=== PATIENT | female | born 1960 | race Caucasian/White ===

== ENCOUNTER 2020-07-17 13:38 | Outpatient (CLI) | payer BC, SELFPAY ==
--- NOTE | ~2020-07-17 | US_ITS ---
EXAMINATION: US pelvic complete w TV DATE: 07/17/2020 14:25 INDICATION: Pelvic pain Comparison:No prior studies for comparison. TECHNIQUE: Multiple transabdominal and endovaginal sonographic images of the pelvis performed. FINDINGS: The uterus is surgically absent. The ovaries are not visualized. There is no free fluid in the pelvis. There are no abnormal masses s een on either side. IMPRESSION: 1. Unremarkable pelvic ultrasound post hysterectomy. Reviewed, dictated and finalized at location B.
== END 2020-07-17 13:39 | disposition home or self-care (01) ==
PROVIDERS: PCP Physician Assistant; Visit Provider Obstetrics & Gynecology
DX: R10.2 Pelvic and perineal pain (principal)
CPT/HCPCS: 76830; 76856

== ENCOUNTER 2021-03-02 15:29 | Outpatient (CLI) | payer BC, SELFPAY ==
--- NOTE | ~2021-03-02 | XR_ITS ---
EXAMINATION: XR wrist RT min 3V DATE: 03/02/2021 15:51 INDICATION: Right wrist pain. TECHNIQUE: 4 views of right wrist were obtained. COMPARISON: None. FINDINGS: Bone alignment is normal. No fracture. There is mild osteoarthritis of triscaphe joint and first carpometacarpal joint. IMPRESSION: 1. Mild polyarticular osteoarthritis. Reviewed, dictated and finalized at location A. CAL CARE MANAGER
== END 2021-03-02 15:30 | disposition home or self-care (01) ==
PROVIDERS: PCP Family Medicine; Visit Provider Family Medicine
DX: M19.031 Primary osteoarthritis, right wrist (principal)
CPT/HCPCS: 73110

== ENCOUNTER 2021-03-20 10:47 | Outpatient (CLI) | payer BC, SELFPAY ==
--- NOTE | ~2021-03-20 | XR_ITS ---
EXAMINATION: XR wrist LT min 3V DATE: 03/20/2021 11:05 INDICATION: Left wrist pain. TECHNIQUE: 4 views of left wrist were obtained. COMPARISON: None. FINDINGS: Bone alignment is normal. No fracture. There is mild osteoarthritis of first carpometacarpa l joint. IMPRESSION: 1. Mild osteoarthritis of first carpometacarpal joint. Reviewed, dictated and finalized at location A. PAINTER
== END 2021-03-20 10:48 | disposition home or self-care (01) ==
LOC: ANHIMG 10:49
PROVIDERS: PCP Family Medicine; Visit Provider Physician Assistant
DX: M19.032 Primary osteoarthritis, left wrist (principal)
CPT/HCPCS: 73110

== ENCOUNTER → 2022-02-19 10:07 | Outpatient (CLI) | payer BC, SELFPAY ==
--- NOTE | ~2022-02-19 | XR_ITS ---
EXAMINATION: XR foot RT min 3V DATE: 02/19/2022 10:31 INDICATION: Right foot injury with lateral pain and swelling TECHNIQUE: Dorsoplantar, two oblique and lateral views of the right foot were obtained. COMPARISON: None. FINDINGS: Diffuse osteopenia. Postoperative change at the right first ray with likely realignment osteotomy at the neck of the first metatarsal with screw fixation, bunionectomy at the medial head of the first me tatarsal and realignment osteotomy at the first proximal phalanx with screw fixation. Alignment appea rs essentially anatomic. No fractures identified. Severe osteoarthritis at the first metatarsophalang eal joint. Additional mild osteoarthritis at a few of the tarsal metatarsal and interphalangeal joint s. Small Achilles and plantar calcaneal spurs. Soft tissues are unremarkable. IMPRESSION: 1. No acute osseous abnormality. 2. Postoperative changes consistent with prior bunionectomy and likely right hallux valgus correction . 3. Severe osteoarthritis at the first metatarsophalangeal joint. Reviewed, dictated and finalized at location B. IMPRESSION: 1. No acute osseous abnormality. 2. Postoperative changes consistent with prior bunionectomy and likely right miller llux valgus correction. 3. Severe osteoarthritis at the first metatarsophalangeal joint.
--- NOTE | ~2022-02-19 | XR_ITS ---
EXAMINATION: XR clavicle BI, XR shoulder RT min 2V DATE: 02/19/2022 10:31 INDICATION: Right shoulder pain and specified disorders of bone at the shoulder. TECHNIQUE: 1. AP internally and externally rotated, AP oblique externally rotated and axillary views of the righ t shoulder were obtained. 2. AP and 10 degrees cephalad angled AP views of the bilateral clavicles were obtained. COMPARISON: None FINDINGS: Right shoulder: Normal alignment. No fracture. Glenohumeral and acromioclavicular joint spaces are normal. Small bon e island at the apex of the right humeral head. Soft tissues are unremarkable. Bilateral clavicles: There is some asymmetry at the bilateral sternoclavicular joints with the medial head of the right cl avicle positioned slightly more cephalad with respect to the manubrium and on the left. No fractures. Normal alignment and both glenohumeral and acromioclavicular joint space at the left shoulder. Small amorphous calcification projecting along the cephalad margin of the left glenoid which could represe nt either degenerative loose body, heterotopic ossicle or potentially positive calcific tendinitis. S oft tissues are unremarkable. Visualized portions of the upper lungs are clear. IMPRESSION: Asymmetry to the bilateral sternoclavicular joints which suggests possibility of subluxation at the r ight sternoclavicular joint. Otherwise unremarkable right shoulder and bilateral clavicle radiographs . Reviewed, dictated and finalized at location B. IMPRESSION: Asymmetry to the bilateral sternoclavicular joints which suggests possibility o f subluxation at the right sternoclavicular joint. Otherwise unremarkable right shoulder and bilateral clavicle radiographs.
== END ==
PROVIDERS: PCP Family Medicine; Visit Provider Physician Assistant
DX: M25.519 Pain in unspecified shoulder (principal); M89.8X1 Other specified disorders of bone, shoulder; M19.071 Primary osteoarthritis, right ankle and foot
CPT/HCPCS: 73000; 73030; 73630

== ENCOUNTER 2022-05-17 09:17 | Outpatient (CLI) | payer BC, SELFPAY ==
[2022-05-17 10:17] LABS: Iron 104 ug/dL (37-170)
[2022-05-17 10:26] LABS: Percent Iron Saturation 28 % (20-50)
== END 2022-05-17 09:18 | disposition home or self-care (01) ==
PROVIDERS: PCP Family Medicine; Visit Provider Nurse Practitioner Family
DX: E03.9 Hypothyroidism, unspecified (principal); R53.83 Other fatigue; G25.81 Restless legs syndrome
CPT/HCPCS: 36415; 82728; 83540; 83550; 84443

== ENCOUNTER 2022-06-21 09:15 | Outpatient (CLI) | payer OTHER, SELFPAY ==
--- NOTE | 2022-07-12 19:15 | WPDSLEEPSTUD ---
Sleep Study Date of Study: 06/21/22 Ordering Provider: Nicholas Clay APRN Interpreting Physician: Zenaida Glass DO Sleep Study Type: Polysomnogram Height: 1.75 m Weight: 90.718 kg Body Mass Index: 29.5 Neck Circumference (inches): 16 Duncan: 9 Reason for Sleep Study Difficulty falling asleep and staying asleep Sleep History The patient is a 62-year-old female with depression, hypothyroidism, hyperlipidemia and insomnia that had a sleep study ordered by the pulmonary group for evaluation of her insomnia. The patient denies awakening from sleep short of breath. She denies awakening at night with heartburn, belching or cough. She occasionally snores loudly enough that others complain. She rarely has trouble sleeping when she has a cold. She denies waking up gasping for air throughout the night. She denies having breathing problems at night observed by herself or others. She denies sweating excessively at night. She denies having heart palpitations or irregular heartbeats during the night. She occasionally falls asleep during the day but never while driving. She denies sleep paralysis and cataplexy. She denies having trouble at school or work due to sleepiness. She rarely experiences vivid dreamlike scenes upon awakening or falling asleep. She denies feeling afraid of going to sleep. She rarely has nightmares. She frequently remembers her dreams. She constantly has thoughts racing through her mind. She rarely feels sad or depressed. She frequently has anxiety. She rarely has muscular tension. She denies noticing parts of her body jerk. She denies kicking during the night. She frequently has crawling and aching feelings in her legs but denies having leg pain during the night. She denies grinding her teeth during sleep and denies awakening with morning jaw pain. She is rarely bothered by pain during the day but never awakened by pain during the night. She frequently wakes up feeling stiff in the morning. She frequently wakes up with sore or achy muscles. She frequently wakes up with pain in the neck, spine or other joints. She goes to bed at 11:00 p.m. on weekdays but does not have a set bedtime on the weekends. It takes her over an hour to fall asleep. She will wake up once throughout the night for unknown reasons. When she awakens, she will go eat. She can usually fall back asleep within 10 minutes. She wakes up at 7:00 a.m. on both weekdays and weekends but will usually fall back asleep. She will stay in bed for 15 minutes after waking up in the morning. She will consume caffeinated beverages within 2 hours of bedtime. She does not engage in physical exercise before bedtime. She will watch television before falling asleep. She denies taking naps in the afternoon or the evening. She consumes 2 caffeinated beverages per day. She denies tobacco, alcohol and recreational drug use. [facility] Past Medical History Medical History Thyroid disorder Twisting of colon on long axis Surgical History Surgical History H/O hysterectomy for benign disease History of bunionectomy of both great toes S/P tubal ligation Family History Family History Sibling Family history of migraine headaches Father Diabetes mellitus Carcinoma of colon Mother Hypertension Cerebrovascular accident Social History Social History Smoking status: Never smoker Second hand tobacco smoke exposure: No Alcohol intake: current Alcohol use details: seldom; socially Substance use: never Substance use type: does not use Lack of Transportation: No Lack of Food: Never True Current Housing: I Have Housing Concerned About Future Housing: No Difficulty Paying Gas/Electric Bills: No Di
[2022-07-12 19:38] VITALS: BMI 29.5
== END 2022-06-22 07:23 | disposition home or self-care (01) ==
PROVIDERS: PCP Family Medicine; Visit Provider Nurse Practitioner Family
DX: G47.00 Insomnia, unspecified (principal); G47.9 Sleep disorder, unspecified; G47.33 Obstructive sleep apnea (adult) (pediatric)
CPT/HCPCS: 95810

== ENCOUNTER 2023-01-18 10:42 | Outpatient (CLI) | payer OTHER, SELFPAY ==
[2023-01-18 11:46] LABS: Alanine Aminotransferase 22 U/L (6-35); Albumin Level 4.3 g/dL (3.5-5.1); Alkaline Phosphatase 96 U/L (38-126); Anion Gap 7 mmol/L (8-16); Aspartate Amino Transferase 29 U/L (14-36); Bilirubin,Total 0.9 mg/dL (0.2-1.3); Blood Urea Nitrogen 11 mg/dL (7-17); Calcium 9.2 mg/dL (8.4-10.2); Carbon Dioxide 27 mmol/L (22-30); Chloride 105 mmol/L (98-107); Cholesterol 216 mg/dL (0-200); Estimated Glomerular Filt Rate > 60; Glucose 107 mg/dL (65-110); HDL Direct 62 mg/dL; Sodium 139 mmol/L (137-145); Triglycerides 54 mg/dL (<150)
[2023-01-18 11:57] LABS: LDL Cholesterol Direct 104 mg/dL
[2023-01-18 12:26] LABS: Free T4 Free Thyroxine 1.03 ng/mL (0.78-2.19)
== END 2023-01-18 10:43 | disposition home or self-care (01) ==
LOC: ANHLAB 10:44
PROVIDERS: PCP Family Medicine; Visit Provider Physician Assistant
DX: Z13.1 Encounter for screening for diabetes mellitus (principal); E03.9 Hypothyroidism, unspecified; Z13.220 Encounter for screening for lipoid disorders
CPT/HCPCS: 36415; 80053; 80061; 84439; 84443

== ENCOUNTER 2023-04-22 01:15 | Day surgery (SDC) | payer OTHER, SELFPAY ==
[2023-04-12 14:13] VITALS: BMI 34.0
--- NOTE | 2023-04-12 14:19 | PC.NURSE ---
Report to the Outpatient Waiting Room, entrance under the green pavilion located off [facility], at time 0600 on date 04/22/23. Planned Procedure Time: 0730. Time changes happen often and if your time is changed the preop area will call you the afternoon before. - You and your visitor will be asked to self-screen and do not enter if you have any COVID symptoms. - A mask is optional within the hospital at this time. Patients may have clear liquids (water, carbonated beverages, clear teas, apple juice) until 3 hours prior to surgery with a maximum of 20 ounces. - No food from midnight until time of surgery Take the following medications with a SIP of water the morning of surgery: LEVOTHYROXINE DO NOT STOP ANY OF YOUR OTHER PRESCRIPTION MEDICATIONS PRIOR TO SURGERY ?EXCEPT THE FOLLOWING Medications to discontinue per physician: N/A Date to take last dose: N/A Please no make-up, nail citizen of [place], hairspray, perfume, deodorant, or body powder the day of surgery. No jewelry (including any body piercings) or valuables the day of surgery, leave them at home. Please take a shower or bath the night before, or the morning of, surgery with an antibacterial soap. Wear comfortable, loose fitting clothing. - Jewelry must be removed prior to entering the operating room. Rings and piercings that are not removed may be cut off. - The hospital will not accept responsibility for valuables. - Please leave all valuables, including medications, at home the day of surgery. If you are going home after surgery, a licensed catering truck driver must drive you home. - NO public transportation without another adult if you receive anesthesia. - We recommend that an adult stay with you for 24 hours following discharge. - We also recommend that you do not drive, make important decision, drink alcoholic beverages, or take any drugs that were not prescribed by your health care provider for at least 24 hours after your discharge time. Follow any additional instructions given to you from your surgeon. If you or anyone in your household have experienced Covid symptoms in the past week, please notify your surgeon or the nurse liaison at the phone number below for possible testing. Telephone instructions given to PT - YESICA GOOD and asked if any additional questions and then verbalized understanding. Patient advised to call surgeon office or pre surgery nurse liaison [phone] if any additional questions.
[2023-04-22] VITALS (10 sets, daily range): BP systolic 97–134; BP diastolic 57–76; PULSE 61–87; RESP 12–20; TEMP 36.3–36.5; O2SAT 95–100
--- NOTE | ~2023-04-22 | XR_ITS ---
EXAMINATION: XR surgery orthopedic DATE: 04/22/2023 09:11 INDICATION: Left first metatarsophalangeal arthrodesis. TECHNIQUE: 3 fluoroscopic images of the left forefoot were obtained during procedure performed by Dr. English. Radiologist was not present for the imaging or procedure. The amount of fluoroscopy time u sed during this procedure was 0.3 minutes. COMPARISON: None. FINDINGS: Bunionectomy with osteotomy at the medial head of the first metatarsal. There is also likely realignm ent osteotomy across the neck of the first metatarsal. First metatarsophalangeal arthrodesis which is subsequently fixed with a lag screw and dorsal plate and screws. Alignment post fixation appears tian r-anatomic. No fracture. Mild osteoarthritis at a few of the interphalangeal joints. IMPRESSION: 1. Fluoroscopy utilized during osteotomies at the distal first metatarsal and first metatarsophalange al arthrodesis. See procedure note for further detail. Reviewed, dictated and finalized at location A. ANALYST IMPRESSION: 1. Fluoroscopy utilized during osteotomies at the distal first metatarsal and f irst metatarsophalangeal arthrodesis. See procedure note for further detail.
[2023-04-22] MEDS: LACTATED RINGERS 1,000 ML 30 ML IV CONT ×2 (06:30→09:27)
--- NOTE | 2023-04-22 06:54 | WPDANESEPPF ---
Anes - Initial Pre Proc Eval Procedure: Operation Date: 04/22/23 07:30 Proposed Procedures p Arthrodesis First Metatarsophalangeal Joint Left Foot - Nick English JR, MD s Removal Hardware Left Foot - Nick English JR, MD Date/Time: 04/22/23 06:54 Surgeon: Nick English JR, MD Pre Op Diagnosis: painful hardware left foot, arthritis first MPJ le Patient Data Age: 62 Gender: F Height: 1.75 m Weight: 108.4 kg Allergies Allergy/AdvReac Type Severity Reaction Status Date / Time Penicillins Allergy Severe Anaphylaxis Verified 04/22/23 06:02 ibuprofen Allergy Intermediate Hives Verified 04/22/23 06:02 Home Medications Medication Instructions Recorded Confirmed Type levothyroxine 50 mcg tablet See Rx Instructions .Route 01/19/23 04/12/23 Rx .COMPLEX #90 tabs Patient hx anesthesia problems: none Family hx anesthesia problems: none Results Review: All pre-operative results and documents have been reviewed as part of the pre-operative evaluation. [facility] Past Medical History Medical History (Updated 04/22/23 @ 06:54 by Tono Horta MD) Obesity KANG (obstructive sleep apnea) Thyroid disorder Twisting of colon on long axis Surgical History Surgical History H/O hysterectomy for benign disease History of bunionectomy of both great toes S/P tubal ligation Family History Family History Sibling Family history of migraine headaches Father Diabetes mellitus Carcinoma of colon Mother Hypertension Cerebrovascular accident Social History Social History Smoking status: Never smoker Second hand tobacco smoke exposure: No Alcohol intake: never Alcohol use details: seldom; socially Substance use: never Substance use type: does not use Lack of Transportation: No Lack of Food: Never True Current Housing: I Have Housing Concerned About Future Housing: No Difficulty Paying Gas/Electric Bills: No Difficulty Paying for Meds: No Currently Unemployed: No Education: High School Diploma/GED Difficulty w/ Childcare or Family Care: No Living arrangements: with family Occupation/Education: retired Gender identity (if verbalized by the patient): Female Sexual Orientation (if Verbalized by the Patient): Straight or Heterosexual Spiritual care concerns: No Agree to blood products: Yes Anes - Eval Final PreProcedure Day of Procedure 04/22/23 06:54 Patient weight: obese Heart: regular rate and rhythm Lungs: clear to auscultation Airway: Mallampati scale class II Neurological: alert and oriented Last oral intake: >/= 8 hours ASA classification: III Emergent: no Anesthetic plan: proceed Anesthesia type and monitoring: general LMA and standard monitoring Results Review: All pre-operative results and documents have been reviewed as part of the pre-operative evaluation. Informed Consent: The patient's anesthetic plan and its attendant risks and benefits were discussed with the patient/family/POA. Questions were solicited and answers provided to the satisfaction of the patient/family/POA.
--- NOTE | 2023-04-22 07:08 | WPDHPUPDATE1 ---
History and Physical Update Update Date/Time: 04/22/23 07:08 History and Physical has been reviewed, including an updated exam of the patient. There are NO changes in the patient's condition. Risks, benefits, and alternatives have been discussed and questions answered. Patient agrees to proceed with procedure.
--- NOTE | 2023-04-22 07:22 | WPDANESPNB ---
Anes - Peripheral Nerve Block Date/Time: 04/22/23 07:22 I have discussed with the patient/family/POA the placement of a peripheral nerve block for post-operative pain management, including associated risks, benefits, complications, and side effects. Alternative methods of post-operative analgesia were detailed. Questions were solicited and answers provided to the satisfaction of the patient/family/POA. Time-Out: A pre-procedural Time-Out was completed immediately before starting the procedure and confirmed: Patient Identification, Site, Procedure, Patient Position and the Availability of Requisite Equipment. Clinical Indications: Acute post-operative pain management requested by the operative surgeon. Nerve Block Insertion Note Anes-nerve block: posterior fossa sciatic left and other (saphenous) Patient position: supine Skin prep: chlorhexidine Needle: 22 gauge, stimulating, insulated echogenic needle. Needle length: 80 mm Technique: nerve stimulation lost at (mA) (0.3) Injectate: bupivacaine 0.5% with epi 5 mcg/ml (30cc sciatic, 10cc saphenous) Observations: tolerated well Complications: none Procedure start time:: 719 Procedure end time:: 724
[2023-04-22] MEDS: ceFAZolin 2 GM/D5W 50 ML 2 GM/50 ML BAG IVPB (07:27)
--- NOTE | 2023-04-22 09:20 | W.PM.PROC2 ---
Procedure Note - Detailed Date of Procedure 04/22/23 Pre-op Diagnosis 1. Retained hardware left foot 2. Arthritis first MPJ left foot Post-op Diagnosis Same Procedure Performed 1. Removal of hardware left foot 2. Bone block arthrodesis left first metatarsal phalangeal joint Surgeon Nick English JR, DPM Anesthesia General and Regional Indications Painful joint degeneration first metatarsal phalangeal joint left foot Findings Significant fibrosis to the first metatarsal phalangeal joint left foot Description of Procedure PROCEDURE IN DETAIL: Under mild sedation, the patient was brought into the operating room, placed on the operating table in supine position. A pneumatic ankle tourniquet was placed about the patient's ipsilateral ankle. Following general anesthesia and a popliteal fossa block, the foot was then scrubbed, prepped, and draped in the usual aseptic manner. An Esmarch bandage was then used to exsanguinate the patient's foot and the pneumatic ankle tourniquet was then inflated. Surgery began in the following manner: Attention was directed to the dorsal aspect of the 1st metatarsophalangeal joint where the hallux was noted to be short and decrease range of motion. I started the incision from the central shaft of the 1st metatarsal and extending just proximal to the interphalangeal joint of the hallux. The incision was continued deep down through the subcutaneous tissues using sharp and blunt dissection. All bleeders were cauterized as necessary. At this point, the dissection was continued down to the level of the periosteum and capsular structures overlying the 1st metatarsophalangeal joint. A full length periosteum and capsular incision was made just medial to the extensor hallucis longus tendon. The periosteum and capsular structures were freed from the base of the proximal phalanx as well as the distal 1st metatarsal. At this point, the two Lawndale 3.0mm [place]wn[place] Asnis Screws and Nitinol were removed in toto and placed on the back table to be later discarded. No signs of infection noted. There was loss of length to the first ray after removal of the implant and pseudo arthrosis and fibrous tissue to the distal first metatarsal and base of the proximal phalanx. All hypertrophic bone was resected and smoothed out with a power bur and rasp. Next, I utilized the reamer system for the [place] first metatarsal phalangeal joint revision system to prepare and shape the distal metatarsal and base of the proximal phalanx in a cup and cone fashion. I flushed the area thoroughly with copious amounts of sterile saline. Next, a 2-0 drill bit was used to further fenestrate the distal 1st metatarsal as well as the base of the proximal phalanx in order to allow fusion across the 1st metatarsophalangeal joint. I utilized the [place] trial sizers to measure the anticipated size of the allograft. A 9mm by 15mm graft was chosen and placed in a small sterile specimen cup with sterile water to reconstitute the graft. I made a small stab incision 3cm inferior to the distal lateral malleolus free of the path of the sural nerve, the incision was 5mm in length along the lateral wall of the calcaneus. A curved mosquito hemostat was dissect and expose the periosteum over the lateral calcaneus. Next, I utilized the [place] bone marrow aspirate kit with the provided trocar and cannula to obtain 10cc's of bone marrow aspirate, it was mixed with Heparin. I allowed the allograft to soak and absorb the bone marrow aspirate for 5 minutes I utilized 1cc of demineralized bone matrix putty also mixed with the bone marrow aspirate to the distal first metatarsal and base of the proximal phalanx. A freer periosteal was used to tightly pack the mixture of DBM and bone marrow aspirate. Moreover, I placed the soaked the [place] allograft fully reconstituted and soaked in the bone marrow aspirate and placed it in the void of the first metatarsal phalangeal cally
[2023-04-22] MEDS: ONDANSETRON INJ 4 MG/2 ML VIAL IV PUSH (09:37)
[2023-04-22] MEDS: diphenhydrAMINE HCl INJ 50 MG/ML VIAL 25 MG IV PUSH (10:21)
[2023-04-22] MEDS: SCOPOLAMINE 1 MG PATCH 1 PATCH TRANSDERM (10:21)
== END 2023-04-22 11:36 | disposition home or self-care (01) ==
PROVIDERS: PCP Family Medicine; Visit Provider Podiatrist Foot & Ankle Surgery
PROC: (CPT 28750; principal; 2023-04-22 07:30)
PROC: (CPT 28750; 2023-04-22 07:30)
DX: T84.84XA Pain due to internal orthopedic prosthetic devices, implants and grafts, initial encounter (principal); M79.672 Pain in left foot; M19.072 Primary osteoarthritis, left ankle and foot; G89.18 Other acute postprocedural pain; G47.33 Obstructive sleep apnea (adult) (pediatric); E07.9 Disorder of thyroid, unspecified; E66.9 Obesity, unspecified; Z68.35 Body mass index [BMI] 35.0-35.9, adult; Y83.8 Other surgical procedures as the cause of abnormal reaction of the patient, or of later complication, without mention of misadventure at the time of the procedure
CPT/HCPCS: 28750; 64445; 64450; 99199; A9270; J0690; J1100; J1170; J1200; J2250; J2405; J2704; J3010; J7120

== ENCOUNTER 2025-02-14 07:54 | Outpatient (CLI) | payer OTHER, SELFPAY ==
--- NOTE | ~2025-02-14 | DEXA_ITS ---
Bone Density Report Name: YESICA GOOD Age: 64 Sex: Female Ethnicity: White Date of : 1960 Indication: postmenopausal; screening for osteoporosis; parental hip fracture; height loss; hysterectomy; Referring Provider: EVA THOMAS Study: Bone densitometry was performed. Exam Date: February 14, 2025 Accession number: [id number] Bone Density: Region BMD T-score Z-score Classification AP Spine(L1-L4) 0.999 -0.4 1.3 Normal Femoral Neck (Left) 0.673 -1.6 -0.1 Osteopenia Total Hip (Left) 0.760 -1.5 -0.3 Osteopenia Femoral Neck (Right) 0.671 -1.6 -0.1 Osteopenia Total Hip (Right) 0.738 -1.7 -0.5 Osteopenia Total Hip Mean 0.749 -1.6 -0.4 Osteopenia World Health Organization criteria for BMD impression classify patients as: Normal (T-score at or above -1.0), Osteopenia (T-score between -1.0 and -2.5), or Osteoporosis (T-score at or below -2.5). 10-year Fracture Risk(1): Major Osteoporotic Fracture 17% Hip Fracture 1.1% Reported Risk Factors: [place] (), Neck BMD=0.671, BMI=22.7, parental fracture (1) FRAX(R) Version 3.08. Fracture probability calculated for an untreated patient. Fracture probability may be lower if the patient has received treatment. Clinical Information Provided by Patient: Parent has had a hip fracture Has the following medical conditions: Hysterectomy Patient maximum height was 69 Menopause Age: 62 No regular weight bearing exercise Drinks caffeinated beverages Onset of menses at age 15 Number of children 3 Missed period for more than 6 months in a row Impression: The patient has low bone mass, based on the Right Total Hip T-score. The patient has an estimated ten-year risk of hip fracture of 1.1% and an estimated ten-year risk of major fracture of 17%, based on the WHO FRAX algorithm. The patient has risk factors, including: parental hip fracture. Discussion: BONE DENSITY IS LOW AT ONE OR MORE SKELETAL SITES. This patient's lowest T-score is low at one or more skeletal sites. It meets the World Health Organization's (WHO) criteria for ?low bone mass? (T-score between -1.0 and -2.5). The patient's 10-year risk of fracture as calculated by FRAX is less than the threshold where pharmacological therapy is recommended by the National Osteoporosis Foundation (NOF). However, all treatment decisions require clinical judgment and consideration of individual patient factors, including patient preferences, comorbidities, previous drug use, risk factors not captured in the FRAX model (e.g., frailty, falls, vitamin D deficiency, increased bone turnover, interval significant decline in bone density) and possible under or overestimation of fracture risk by FRAX. The patient should follow a healthful lifestyle (good nutrition with adequate calcium and vitamin D, and appropriate weight-bearing exercise). Follow-Up: Consider repeating this study in 2 to 3 years to reassess this patient's status, or sooner if there is some new clinical indication. Reported by: TYLER on 02/14/2025 8:16:00 AM. Reviewed, dictated and finalized at location A.
== END 2025-02-14 07:55 | disposition home or self-care (01) ==
LOC: MICIMG 07:58
PROVIDERS: PCP Student in an Organized Health Care Education/Training Program; Visit Provider Student in an Organized Health Care Education/Training Program
DX: M85.89 Other specified disorders of bone density and structure, multiple sites (principal); Z78.0 Asymptomatic menopausal state; Z13.820 Encounter for screening for osteoporosis
CPT/HCPCS: 77080